=== PATIENT | male | born 1930 | race Caucasian/White ===

== ENCOUNTER → 2016-06-06 | Outpatient (CLI) | payer MEDICARE, OTHER | LOC: HEART 5 13:14 | DX: I48.91 Unspecified atrial fibrillation (principal); I10 Essential (primary) hypertension; R00.2 Palpitations; R06.02 Shortness of breath | CPT/HCPCS: 93306 ==

== ENCOUNTER → 2016-11-11 | Outpatient (CLI) | payer MEDICARE, OTHER | LOC: LAB 11:34 | DX: I10 Essential (primary) hypertension (principal) | CPT/HCPCS: 36415; 82565; 84520; 86140 ==

== ENCOUNTER → 2016-11-12 | Outpatient (CLI) | payer MEDICARE, OTHER | LOC: RT 13:39 | DX: I48.91 Unspecified atrial fibrillation (principal) | CPT/HCPCS: 93005 ==

== ENCOUNTER → 2016-11-15 | Outpatient (CLI) | payer MEDICARE, OTHER | LOC: KOH-I 10:34 | DX: H53.2 Diplopia (principal); H53.123 Transient visual loss, bilateral; I65.23 Occlusion and stenosis of bilateral carotid arteries | CPT/HCPCS: 93880 ==